=== PATIENT | female | born 1930 | race Caucasian/White ===

== ENCOUNTER 2017-10-09 15:41 | Emergency (ER) | payer OTHER, BC ==
[~2017-10-09] VITALS: Ht 172.7 cm; Wt 83.9 kg
[~2017-10-09 15:41] MED LIST: ARMOUR THYROID60 M1 PO; Ecotrin PO; NOHOMEMEDS; Norvasc PO; Valium PO
[2017-10-09 16:55] LABS: HEMATOCRIT 32.8 % (36.0-46.0); HEMOGLOBIN 11.2 G/DL (11.9-15.5); MCHC 34.1 G/DL (30.0-36.0); MCV 90.9 FL (83-99); PLATELET COUNT 230 K/uL (156-360); RBC DIS.WIDTH-CV 12.5 % (11.8-14.6); RBC DIS.WIDTH-SD 41.2 % (39-53); RED BLOOD COUNT 3.61 M/uL (3.80-5.20); WHITE BLOOD COUNT 5.4 K/uL (4.1-10.2)
[2017-10-09 17:04] LABS: CHLORIDE 107 mEq/L (99-109); POTASSIUM 4.4 mEq/L (3.7-5.4); SODIUM 137 mEq/L (136-147)
[2017-10-09 17:06] LABS: GLUCOSE 95 mg/dL (70-99)
[2017-10-09 17:09] LABS: CREATININE 1.1 mg/dL (0.6-1.3); GFR ESTIMATE (CALCULATED) 50 mL/min/
[2017-10-09 17:10] LABS: UREA NITROGEN (BUN) 26 mg/dL (9-23)
[2017-10-09 17:40] LABS: APPEARANCE CLEAR ((CLEAR)); BILIRUBIN NEGATIVE; BLOOD NEGATIVE; COLOR YELLOW ((YELLOW)); GLUCOSE (STRIP) NEGATIVE; KETONES NEGATIVE; LEUKOCYTES LARGE; NITRITE NEGATIVE; PROTEIN (STRIP) NEGATIVE; SPECIFIC GRAVITY 1.011 (1.000-1.030); UROBILINOGEN 0.2 MG/DL (0.2-1.0)
[2017-10-09 17:57] LABS: BACTERIA 1+ /HPF; EPITHELIAL CELLS 1+ /HPF; HYALINE CASTS 0-5 /LPF; MUCUS NONE SEEN /LPF; RED BLOOD CELLS NONE SEEN /HPF (0-5)
[2017-10-09] MEDS ORDERED: KEFLEX500 MG PO (18:40)
[2017-10-09] MEDS ORDERED: BENADRYL25 MG PO (18:41)
[2017-10-09 19:01] VITALS: BP 154/67
== END 2017-10-09 19:02 | disposition home or self-care (01) ==
LOC: EME 15:41
PROVIDERS: Nurse Practitioner Family
DX: N39.0 Urinary tract infection, site not specified (principal); R60.0 Localized edema; R03.1 Nonspecific low blood-pressure reading; M79.606 Pain in leg, unspecified; I10 Essential (primary) hypertension; Z79.82 Long term (current) use of aspirin; Z88.0 Allergy status to penicillin; Z88.1 Allergy status to other antibiotic agents; Z88.2 Allergy status to sulfonamides
CPT/HCPCS: 80048; 81003; 85027; 99281; 99283